=== PATIENT | male | born 1950 | race Caucasian/White ===

== ENCOUNTER 2017-04-25 16:43 | Emergency (ER) | payer MEDICARE, OTHER ==
[2017-04-25] MEDS ORDERED: Diphtheria,Pertussis(Acell),Tetanus Vaccine 0.5 ML SDV IM ONE (17:16)
[2017-04-25 17:18] VITALS: BP 155/113
[2017-04-25] MEDS ORDERED: Bacitracin Oint 1 GM U/D Packet TOP ONE (17:20)
--- NOTE | 2017-04-25 17:38 | EDM.PDOC ---
[id number]: TERRA Time Seen by Provider: 04/25/17 17:10 Source of Information: Reports: Patient, Family History Limitations: Reports: No Limitations - History of Present Illness INITIAL COMMENTS - FREE TEXT/NARRATIVE: 58-year-old male with a mely of a treble hook embedded into the back of his left hand for the last 2 hours. Onset: Today Location: Reports: Upper Extremity, Left Severity: Mild Associated Symptoms: Reports: No Other Symptoms Left Hand Pain Score (Numeric/FACES): 1 - Related Data Allergies Allergy/AdvReac Type Severity Reaction Status Date / Time No Known Allergies Allergy Verified 04/25/17 17:10 Home Meds: Home Meds Aspirin [Justin Chewable] 162 mg PO DAILY 06/13/14 [History] Famotidine [Famotidine] 20 mg PO DAILY 06/13/14 [History] Lisinopril [Prinivil] 10 mg PO BID 06/13/14 [History] Metoprolol Tartrate [Metoprolol Tartrate] 100 mg PO BID 06/13/14 [History] Simvastatin [Simvastatin] 40 mg PO BEDTIME 06/13/14 [History] Past Medical History HEENT History: Reports: Other (See Below) 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 Cardiovascular History: Reports: High Cholesterol, Hypertension, [place] Gastrointestinal History: Reports: GERD Musculoskeletal History: Reports: Fracture, Osteoarthritis Other Musculoskeletal History: nose - Infectious Disease History Infectious Disease History: Reports: Chicken Pox, Measles, Mumps - Past Surgical History Cardiovascular Surgical History: Reports: Coronary Artery Stent GI Surgical History: Reports: Colonoscopy Social & Family History - Tobacco Use Smoking Status *Q: Never Smoker Second Hand Smoke Exposure: No - Caffeine Use Caffeine Use: Reports: Coffee - Alcohol Use Days Per Week of Alcohol Use: 7 Number of Drinks Per Day: 1 Total Drinks Per Week: 7 Date of Last Drink: 04/24/17 Time of Last Drink: 20:00 - Recreational Drug Use Recreational Drug Use: No ED ROS GENERAL - Review of Systems Review Of Systems: See Below Constitutional: Denies: Fever Respiratory: Denies: Shortness of Breath Cardiovascular: Denies: Chest Pain GI/Abdominal: Denies: Abdominal Pain, Nausea, Vomiting Neurological: Reports: No Symptoms ED EXAM, SKIN/RASH Exam: See Below Exam Limited By: No Limitations General Appearance: Alert, No Apparent Distress Respiratory/Chest: No Respiratory Distress Cardiovascular: Regular Rate, Rhythm Extremities: Other (Exam is otherwise limited to the left hand. Patient has a mely of a trouble hook embedded deep into the dorsal hand between the thumb and index finger.) Course - Vital Signs Last Recorded V/S: Last Vital Signs Temp 96.7 F 04/25/17 17:18 Pulse 78 04/25/17 17:18 Resp 16 04/25/17 17:18 BP 155/113 H 04/25/17 17:18 Pulse Ox 95 04/25/17 17:18 - Orders/Labs/Meds Orders: Active Orders 24 hr Category Date Time Status Vaccines to be Administered [RC] PER UNIT ROUTINE Care 04/25/17 17:16 Active Meds: Medications Discontinued Medications Generic Name Dose Route Start Last Admin Trade Name Arya PRN Reason Stop Dose Admin Bacitracin 1 dose 04/25/17 17:20 04/25/17 17:29 Bacitracin Oint 1 Gm TOP 04/25/17 17:21 1 dose ONETIME ONE Administration Diphtheria/Tetanus/Acell Pertussis 0.5 ml 04/25/17 17:16 04/25/17 17:25 Adacel IM 04/25/17 17:17 0.5 ml .ONCE ONE Administration Lidocaine HCl 5 ml 04/25/17 17:16 04/25/17 17:26 Xylocaine-Mpf 1% INJECT 04/25/17 17:17 5 ml ONETIME ONE Administration - Re-Assessments/Exams Free Text/Narrative Re-Assessment/Exam: 04/25/17 18:19 The area was sterilized with alcohol, one percent lidocaine was infiltrated into the area. The hook was pushed through, cut, and then backed out without difficulty. After removal it was cleansed thoroughly with alcohol, topical bacitracin was applied and a Band-Aid. He is to keep wound covered and clean, can return if concerns of infection or not healing satisfactorily. Departure - Departure Time of Disposition: 17:49 Disposition: Home, Self-Care 01 Condition: good Clinical Impression: Fish hook injury of hand Qualifiers: Encounter type: initial encounter Laterality: left Qualified Code(s): S69.92XA - Unspecified injury of left wrist, hand and finger(s), initial encounter - Discharge Information Instructions: Puncture Wound, [id number] Referrals: PCP,None [Primary Care Provider] - Forms: ED Department Discharge Care Plan Goals: Keep wound covered and clean while healing. Call if concerns of infection or not healing satisfactorily. - My Orders Last 24 Hours: My Active Orders 04/25/17 17:16 Vaccines to be Administered [RC] PER UNIT ROUTINE - Assessment/Plan Last 24 Hours: My Active Orders 04/25/17 17:16 Vaccines to be Administered [RC] PER UNIT ROUTINE
== END 2017-04-25 17:49 | disposition home or self-care (01) ==
LOC: JP.ED 16:43
DX: S69.92XA Unspecified injury of left wrist, hand and finger(s), initial encounter (principal); I10 Essential (primary) hypertension; K21.9 Gastro-esophageal reflux disease without esophagitis; M19.90 Unspecified osteoarthritis, unspecified site; Z79.82 Long term (current) use of aspirin; Z79.899 Other long term (current) drug therapy; Z95.5 Presence of coronary angioplasty implant and graft; W45.8XXA Other foreign body or object entering through skin, initial encounter; Z23 Encounter for immunization
CPT/HCPCS: 90471; 90715; 99283; 99283-25

== ENCOUNTER 2019-07-09 07:46 | Day surgery (SDC) | payer MEDICARE ==
[~2019-07-09 07:46] MED LIST: Bupivacaine 0.5% 50 ML MDV ONE; Lidocaine 1% 50 ML MDV ONE
[2019-07-09] MEDS ORDERED: Lidocaine 1% 20 ML MDV ONE (07:56)
[2019-07-09] MEDS ORDERED: Sodium Chloride 0.9% 1,000 ML IV SCH (08:15)
[2019-07-09] MEDS ORDERED: fentaNYL 100 MCG/2 ML SDV ONE (08:51)
[2019-07-09] MEDS ORDERED: Propofol 200 MG/20 ML SDV ONE ×2 (08:51→11:08)
[2019-07-09] MEDS ORDERED: Midazolam 1 MG/ML 2 ML SDV ONE (08:52)
[2019-07-09] MEDS ORDERED: ceFAZolin 2 GM in Premix Bag 1 BAG IV ONE (09:15)
[2019-07-09] MEDS ORDERED: ceFAZolin 2 GM in Sodium Chloride 0.9% 100 ML IV ONE (09:15)
[2019-07-09] MEDS ORDERED: Bacitracin Oint 1 GM U/D Packet ONE (09:22)
[2019-07-09] MEDS ORDERED: Acetaminophen/HYDROcodone 325-5 MG Tab PO PRN ×2 (12:30→12:36)
--- NOTE | 2019-07-09 13:31 | OR ---
DATE OF PROCEDURE: 07/09/2019 SURGEON: Jim Sims MD PROCEDURE: Excision of lesion, right ear ([id number]). COMPLICATIONS: None. DRIVE IN WAITER/WAITRESS: None. ANESTHESIA: MAC. PREOPERATIVE DIAGNOSIS: Large nonhealing skin lesion, most consistent with probable basal cell carcinoma. POSTOPERATIVE DIAGNOSIS: Large nonhealing skin lesion, most consistent with probable basal cell carcinoma. PROCEDURE IN DETAIL: The patient was placed in a supine position with the head turned to the left. This would be a wedge-type excision. This was measured out to be a wedge approximately 2.5 cm x 2.1 cm. After this was marked, this was next anesthetized with lidocaine. This was carried down with a 15 blade. Electrocautery was used to excise the remaining aspect of the ear, including cartilage. Direct pressure was controlled with electrocautery. The specimen had been marked by myself and was hand-delivered to the pathologist and orientation was explained and agreed upon. The wedge was then closed with interrupted 3-0 Vicryl and 4-0 Prolene in an interrupted fashion. Dressings were applied. The patient tolerated the procedure well. Jim Sims MD /[id number]
== END 2019-07-09 13:17 | disposition home or self-care (01) ==
LOC: JP.SDS 07:46
PROVIDERS: ATTEND Surgery
DX: C44.222 Squamous cell carcinoma of skin of right ear and external auricular canal (principal); I25.10 Atherosclerotic heart disease of native coronary artery without angina pectoris; I10 Essential (primary) hypertension; K21.9 Gastro-esophageal reflux disease without esophagitis
CPT/HCPCS: 69110; 88305; 88331; 88332; A9270; J0690; J2001; J2250; J2704; J3010; J7030; J3490

== ENCOUNTER 2021-05-01 06:14 | Day surgery (SDC) | payer MEDICARE ==
[2021-05-01] MEDS ORDERED: Sodium Chloride 0.9% 1,000 ML IV SCH (07:00)
[2021-05-01] MEDS ORDERED: Propofol 200 MG/20 ML SDV ONE (07:13)
[2021-05-01] MEDS ORDERED: Midazolam 1 MG/ML 2 ML SDV ONE (07:13)
[2021-05-01] MEDS ORDERED: fentaNYL 100 MCG/2 ML SDV ONE (07:13)
--- NOTE | 2021-05-01 11:24 | OR ---
DATE OF PROCEDURE: 05/01/2021 SURGEON: Jim Sims MD PROCEDURE: Colonoscopy. FINDINGS: Normal colonoscopy. PREOPERATIVE DIAGNOSIS: Screening colonoscopy. POSTOPERATIVE DIAGNOSIS: Screening colonoscopy. RISKS: Risks, benefits, alternatives, and limitations including, but not limited to infection, bleeding, perforation, false positives, and false negatives were explained to the patient, and they wished to proceed. PROCEDURE IN DETAIL: The patient was placed in left lateral decubitus position. Digital rectal exam was performed without abnormality. Scope was introduced and advanced atraumatically to the ileocecal valve. A photo was taken of the appendiceal orifice. The scope was brought back to the ascending, transverse, descending colon, and retroflexed. No evidence of old or new blood. No masses. No polyps. No colitis. No abnormalities. No abnormalities on retroflexion. Greater than 8 minutes was spent removing the scope. The prep was acceptable, approximately 95% of luminal surface could be seen. The patient tolerated the procedure well. Jim Sims MD /[id number]
== END 2021-05-01 09:30 | disposition home or self-care (01) ==
LOC: JP.SDS 06:14
PROVIDERS: ATTEND Surgery
DX: Z12.11 Encounter for screening for malignant neoplasm of colon (principal); I10 Essential (primary) hypertension; I25.10 Atherosclerotic heart disease of native coronary artery without angina pectoris; E66.9 Obesity, unspecified; I25.2 Old myocardial infarction; Z68.32 Body mass index [BMI] 32.0-32.9, adult
CPT/HCPCS: G0121; J2250; J2704; J3010; J7030

== ENCOUNTER 2022-06-21 06:24 | Day surgery (SDC) | payer MEDICARE ==
[2022-06-21] MEDS ORDERED: Propofol 200 MG/20 ML SDV ONE (07:05)
[2022-06-21] MEDS ORDERED: fentaNYL 100 MCG/2 ML SDV ONE (07:05)
[2022-06-21] MEDS: Lactated Ringers 1,000 ML IV SCH (07:14)
== END 2022-06-21 08:47 | disposition home or self-care (01) ==
LOC: JP.SDS 06:24
PROVIDERS: ATTEND Family Medicine
DX: K21.9 Gastro-esophageal reflux disease without esophagitis (principal); I25.10 Atherosclerotic heart disease of native coronary artery without angina pectoris; I10 Essential (primary) hypertension; E66.9 Obesity, unspecified; Z87.891 Personal history of nicotine dependence; Z98.890 Other specified postprocedural states; Z68.33 Body mass index [BMI] 33.0-33.9, adult
CPT/HCPCS: 43235; J2704; J3010; J7120

== ENCOUNTER 2024-10-21 10:01 | Emergency (ER) | payer MEDICARE ==
[2024-10-21 10:42] LABS: BASOPHILS ABSOLUTE AUTO 0.03 K/uL (0.00-0.10); BASOPHILS PERCENT AUTO 0.4 % (0.1-1.3); EOSINOPHILS ABSOLUTE AUTO 0.26 K/uL (0.00-0.40); EOSINOPHILS PERCENT AUTO 3.6 % (0.0-5.4); HEMATOCRIT 44.4 % (38.4-49.7); HEMOGLOBIN 15.2 g/dL (12.9-16.9); IMMATURE GRAN PERCENT AUTO 0.1 % (0.0-0.7); LYMPHOCYTES ABSOLUTE AUTO 1.03 K/uL (0.8-3.3); LYMPHOCYTES PERCENT AUTO 14.1 % (11.4-47.7); MEAN CORPUSCULAR HEMOGLOBIN 33.2 pg (31.6-35.5); MEAN CORPUSCULAR HGB CONC 34.2 g/dL (31.6-35.5); MEAN CORPUSCULAR VOLUME 96.9 fL (81.4-99.0); MONOCYTES ABSOLUTE AUTO 0.68 K/uL (0.20-0.90); MONOCYTES PERCENT AUTO 9.3 % (3.3-12.6); NEUTROPHILS PERCENT AUTO 72.5 % (40.0-78.1); PLATELET COUNT,PLT 245 K/uL (130-375); RED BLOOD CELL COUNT 4.58 M/uL (4.14-5.76); WHITE BLOOD CELL COUNT,WBC 7.3 K/uL (3.2-11.0)
[2024-10-21 10:43] LABS: IMMATURE GRAN ABSOLUTE AUTO 0.01 K/uL (0.00-0.23)
[2024-10-21 11:12] LABS: A/G RATIO 1.2 (1.2-2.2); ALANINE AMINOTRANSFERASE,ALT 27 U/L (12-78); ALBUMIN 3.6 g/dL (3.4-5.0); ALKALINE PHOSPHATASE 86 U/L (46-116); ASPARTATE AMNIOTRANSFERASE,AST 24 U/L (15-37); BILIRUBIN TOTAL 0.4 mg/dL (0.2-1.0); BLOOD UREA NITROGEN,BUN 18 mg/dL (7-18); CARBON DIOXIDE,CO2 30 mmol/L (21-32); CHLORIDE,CL 103 mmol/L (100-108); CREATININE 0.8 mg/dL (0.8-1.3); ESTIMATED GFR 92 mL/min (>60); GLUCOSE RANDOM 111 mg/dL (74-106); POTASSIUM,K 4.3 mmol/L (3.6-5.2); PRO B-TYPE NATRIUR PEPT,BNPPRO 79 pg/mL (5-450); PROTEIN TOTAL,TP 6.7 g/dL (6.4-8.2); SODIUM,NA 139 mmol/L (140-148)
[2024-10-21 11:13] LABS: ANION GAP 10.3 mmol/L (5.0-14.0)
[2024-10-21] MEDS: Sodium Chloride 0.9% 10 ML Syringe FLUSH PRN (12:12)
[2024-10-21] MEDS: Sodium Chloride 0.9% 80 ML IV SCH (12:27)
[2024-10-21] MEDS: Iopamidol 612 MG/ML 100 ML Bottle IV SCH (12:27)
[2024-10-21 12:48] LABS: CORONAVIRUS COVID-19 NAA NEGATIVE (NEGATIVE); INFLUENZA A NAA NEGATIVE (NEGATIVE); INFLUENZA B NAA NEGATIVE (NEGATIVE); RESPIRATORY SYNCYTIAL VIR NAA NEGATIVE (NEGATIVE)
[2024-10-21] MEDS: methylPREDNISolone Sodium Succinate 125 MG/2 ML SDV IVPUSH ONE (13:42)
[2024-10-21] MEDS: Albuterol 0.083% 2.5 MG/3 ML Neb Soln NEB ONE (13:42)
== END 2024-10-21 15:22 | disposition home or self-care (01) ==
LOC: JP.ED 10:01
DX: J98.01 Acute bronchospasm (principal); T78.40XA Allergy, unspecified, initial encounter; I10 Essential (primary) hypertension; I25.10 Atherosclerotic heart disease of native coronary artery without angina pectoris; I25.2 Old myocardial infarction; E78.00 Pure hypercholesterolemia, unspecified; K21.9 Gastro-esophageal reflux disease without esophagitis; Z95.1 Presence of aortocoronary bypass graft; Z79.899 Other long term (current) drug therapy; Z79.1 Long term (current) use of non-steroidal anti-inflammatories (NSAID)
CPT/HCPCS: 0241U; 36415; 71260; 80053; 83880; 84484; 85025; 85379; 93005; 96374; 99285; J2919; J3490; Q9967